=== PATIENT | female | born 1965 | race Caucasian/White ===

== ENCOUNTER → 2023-04-09 08:52 | Outpatient (REF) | payer BC, SELFPAY | LOC: DHCBC MAIN 08:52 | PROVIDERS: ATTENDING PHYSICIAN Internal Medicine; FAMILY PHYSICIAN Family Medicine | DX: R94.31 Abnormal electrocardiogram [ECG] [EKG] (principal); R00.2 Palpitations; R42 Dizziness and giddiness | CPT/HCPCS: 93306 ==

== ENCOUNTER → 2023-07-10 08:15 | Outpatient (REF) | payer BC, SELFPAY | LOC: HWRAD 08:15 | PROVIDERS: ATTENDING PHYSICIAN Obstetrics & Gynecology Gynecologic Oncology; FAMILY PHYSICIAN Family Medicine; REFERRING PHYSICIAN Obstetrics & Gynecology Gynecologic Oncology | DX: C54.1 Malignant neoplasm of endometrium (principal) | CPT/HCPCS: 71260; 74177; Q9967 ==

== ENCOUNTER → 2023-07-15 15:19 | Outpatient (REF) | payer BC, SELFPAY ==
[2023-07-15 15:36] LABS: % Basophils 0.8 % (0-2); % Immature Granulocytes 0.3 % (0-0.5); % Lymphocytes 35.4 % (20.5-51.1); % Monocytes 7.3 % (1.7-9.3); % Neutrophils 55.2 % (42.2-75.2); Absolute Basophils 0.1 10^3/uL (0-0.2); Absolute Eosinophils 0.1 10^3/uL (0-0.7); Absolute Lymphocytes 2.5 10^3/uL (1.2-3.4); Absolute Monocytes 0.5 10^3/uL (0.1-0.6); Absolute Neutrophils 3.9 10^3/uL (1.4-6.5); Hematocrit 36.5 % (37.0-47.0); Hemoglobin 12.5 g/dL (12.0-16.0); Mean Corp Hgb Conc. 34.2 g/dL (33.0-37.0); Mean Corpuscular Volume 87.5 fL (81.0-99.0); Mean Platelet Volume 8.7 fL (7.4-10.4); Nucleated Red Blood Cells % 0 %; Platelet Count 371 10^3/uL (130-400); Red Blood Cell Count 4.17 10^6/uL (4.20-5.40); Red Cell Dist. Width 12.1 % (11.5-14.5); White Blood Cell Count 7.1 10^3/uL (4.8-10.8)
[2023-07-15 16:01] LABS: ALT (SGPT) 15 U/L (0-35); AST (SGOT) 23 U/L (14-36); Albumin 4.3 g/dl (3.5-5.0); Alkaline Phosphatase 81 U/L (38-126); Blood Urea Nitrogen 13 mg/dl (7-17); Calcium 9.6 mg/dl (8.4-10.2); Carbon Dioxide 30 mmol/L (22-30); Chloride 101 mmol/L (98-107); Glucose 115 mg/dl (70-99); Potassium 4.3 mmol/L (3.5-5.1); Sodium 139 mmol/L (135-145); Total Bilirubin 0.9 mg/dl (0.2-1.3); Total Protein 7.1 g/dl (6.3-8.2); eGFR > 60.00
[2023-07-15 19:58] LABS: CA 125 5.7 U/mL (0-35)
== END ==
LOC: REG 15:19
PROVIDERS: ATTENDING PHYSICIAN Obstetrics & Gynecology Gynecologic Oncology; FAMILY PHYSICIAN Family Medicine; REFERRING PHYSICIAN Obstetrics & Gynecology Gynecologic Oncology
DX: C54.9 Malignant neoplasm of corpus uteri, unspecified (principal); C54.1 Malignant neoplasm of endometrium
CPT/HCPCS: 36415; 80053; 85025; 86304

== ENCOUNTER → 2023-07-16 15:50 | Outpatient (REF) | payer BC, SELFPAY | LOC: HWWDC 15:50 | PROVIDERS: ATTENDING PHYSICIAN Obstetrics & Gynecology Gynecologic Oncology; FAMILY PHYSICIAN Family Medicine; REFERRING PHYSICIAN Obstetrics & Gynecology Gynecologic Oncology | DX: Z12.31 Encounter for screening mammogram for malignant neoplasm of breast (principal) | CPT/HCPCS: 77063; 77067 ==

== ENCOUNTER → 2023-11-06 06:22 | Outpatient (REF) | payer BC, SELFPAY ==
[2023-11-06 06:52] LABS: % Basophils 0.6 % (0-2); % Immature Granulocytes 0.3 % (0-0.5); % Lymphocytes 43.4 % (20.5-51.1); % Neutrophils 43.7 % (42.2-75.2); Absolute Eosinophils 0.1 10^3/uL (0-0.7); Absolute Lymphocytes 2.8 10^3/uL (1.2-3.4); Absolute Monocytes 0.7 10^3/uL (0.1-0.6); Absolute Neutrophils 2.8 10^3/uL (1.4-6.5); Hematocrit 40.4 % (37.0-47.0); Hemoglobin 13.4 g/dL (12.0-16.0); Mean Corp Hgb Conc. 33.2 g/dL (33.0-37.0); Mean Corpuscular Hgb 29.8 pg (27.0-31.0); Mean Platelet Volume 9.2 fL (7.4-10.4); Nucleated Red Blood Cells % 0 %; Platelet Count 314 10^3/uL (130-400); Red Blood Cell Count 4.49 10^6/uL (4.20-5.40); Red Cell Dist. Width 12.3 % (11.5-14.5); White Blood Cell Count 6.5 10^3/uL (4.8-10.8)
[2023-11-06 07:28] LABS: ALT (SGPT) 18 U/L (0-35); AST (SGOT) 27 U/L (14-36); Albumin 4.4 g/dl (3.5-5.0); Alkaline Phosphatase 86 U/L (38-126); Blood Urea Nitrogen 14 mg/dl (7-17); Calcium 9.6 mg/dl (8.4-10.2); Carbon Dioxide 27 mmol/L (22-30); Chloride 106 mmol/L (98-107); Glucose 97 mg/dl (70-99); HDL Cholesterol 101 mg/dl; LDL Cholesterol, Calculated 195 mg/dl; Potassium 4.2 mmol/L (3.5-5.1); Sodium 141 mmol/L (135-145); Total Bilirubin 1.1 mg/dl (0.2-1.3); Total Cholesterol 311 mg/dl (50-199); Total Protein 7.1 g/dl (6.3-8.2); Triglyceride 75 mg/dl (10-149); Very Low Density Lipoprotein 15 mg/dl (0-30); eGFR > 60.00
[2023-11-06 07:55] LABS: TSH 5.65 uIU/ml (0.47-4.68)
[2023-11-06 09:57] LABS: Glycohemoglobin (HgbA1c) 5.2 % (4.0-5.6)
== END ==
LOC: REG 06:22
PROVIDERS: ATTENDING PHYSICIAN Family Medicine
DX: Z00.00 Encounter for general adult medical examination without abnormal findings (principal)
CPT/HCPCS: 36415; 80053; 80061; 83036; 84443; 85025

== ENCOUNTER → 2023-12-18 06:44 | Outpatient (REF) | payer BC, SELFPAY | LOC: HWRAD 06:44 | PROVIDERS: ATTENDING PHYSICIAN Dermatology; FAMILY PHYSICIAN Family Medicine; REFERRING PHYSICIAN Obstetrics & Gynecology Gynecologic Oncology | DX: R79.89 Other specified abnormal findings of blood chemistry (principal); D48.5 Neoplasm of uncertain behavior of skin | CPT/HCPCS: 76536; 76882 ==

== ENCOUNTER → 2024-04-02 08:28 | Outpatient (REF) | payer BC, SELFPAY ==
[2024-04-02 13:59] LABS: % Basophils 0.6 % (0-2); % Eosinophils 0.9 % (0-6); % Immature Granulocytes 0.1 % (0-0.5); % Lymphocytes 34.5 % (20.5-51.1); % Neutrophils 53.9 % (42.2-75.2); Absolute Eosinophils 0.1 10^3/uL (0-0.7); Absolute Lymphocytes 2.3 10^3/uL (1.2-3.4); Absolute Monocytes 0.7 10^3/uL (0.1-0.6); Absolute Neutrophils 3.6 10^3/uL (1.4-6.5); Hematocrit 43.2 % (37.0-47.0); Hemoglobin 14.6 g/dL (12.0-16.0); Mean Corp Hgb Conc. 33.8 g/dL (33.0-37.0); Mean Corpuscular Hgb 30.2 pg (27.0-31.0); Mean Corpuscular Volume 89.4 fL (81.0-99.0); Mean Platelet Volume 9.5 fL (7.4-10.4); Nucleated Red Blood Cells % 0 %; Platelet Count 350 10^3/uL (130-400); Red Blood Cell Count 4.83 10^6/uL (4.20-5.40); Red Cell Dist. Width 12.2 % (11.5-14.5); White Blood Cell Count 6.7 10^3/uL (4.8-10.8)
[2024-04-02 14:31] LABS: ALT (SGPT) 19 U/L (0-35); AST (SGOT) 30 U/L (14-36); Albumin 4.6 g/dl (3.5-5.0); Alkaline Phosphatase 86 U/L (38-126); Blood Urea Nitrogen 15 mg/dl (7-17); Calcium 9.4 mg/dl (8.4-10.2); Carbon Dioxide 30 mmol/L (22-30); Chloride 100 mmol/L (98-107); Glucose 88 mg/dl (70-99); Potassium 4.7 mmol/L (3.5-5.1); Sodium 140 mmol/L (135-145); Total Bilirubin 1.1 mg/dl (0.2-1.3); Total Protein 7.4 g/dl (6.3-8.2); eGFR > 60.00
[2024-04-03 11:24] LABS: CA 125 6.5 U/mL (0-35)
== END ==
LOC: REG 08:28
PROVIDERS: ATTENDING PHYSICIAN Physician Assistant Surgical; FAMILY PHYSICIAN Family Medicine
DX: C54.1 Malignant neoplasm of endometrium (principal); Z12.31 Encounter for screening mammogram for malignant neoplasm of breast
CPT/HCPCS: 36415; 80053; 85025; 86304

== ENCOUNTER → 2024-04-23 07:31 | Outpatient (REF) | payer BC, SELFPAY | LOC: RAD 07:31 | PROVIDERS: ATTENDING PHYSICIAN Physician Assistant Surgical; FAMILY PHYSICIAN Family Medicine | DX: C54.1 Malignant neoplasm of endometrium (principal); Z12.31 Encounter for screening mammogram for malignant neoplasm of breast | CPT/HCPCS: 71260; 74177; Q9967 ==

== ENCOUNTER → 2024-06-03 16:24 | Outpatient (REF) | payer BC, SELFPAY | LOC: CLAB 16:24 | PROVIDERS: Pathology Anatomic Pathology & Clinical Pathology; ATTENDING PHYSICIAN Dermatology | DX: D48.5 Neoplasm of uncertain behavior of skin (principal) | CPT/HCPCS: 88305 ==

== ENCOUNTER → 2024-07-16 15:02 | Outpatient (REF) | payer BC, SELFPAY | LOC: WDC 15:02 | PROVIDERS: ATTENDING PHYSICIAN Obstetrics & Gynecology Gynecologic Oncology; FAMILY PHYSICIAN Family Medicine | DX: Z12.31 Encounter for screening mammogram for malignant neoplasm of breast (principal) | CPT/HCPCS: 77063; 77067 ==

== ENCOUNTER → 2024-11-05 08:44 | Outpatient (REF) | payer BC, SELFPAY ==
[2024-11-05 09:46] LABS: % Eosinophils 1.6 % (0-6); % Immature Granulocytes 0.6 % (0-0.5); % Lymphocytes 36.9 % (20.5-51.1); % Monocytes 9.5 % (1.7-9.3); % Neutrophils 50.4 % (42.2-75.2); Absolute Basophils 0.1 10^3/uL (0-0.2); Absolute Eosinophils 0.1 10^3/uL (0-0.7); Absolute Lymphocytes 1.9 10^3/uL (1.2-3.4); Absolute Monocytes 0.5 10^3/uL (0.1-0.6); Absolute Neutrophils 2.5 10^3/uL (1.4-6.5); Hematocrit 42.5 % (37.0-47.0); Hemoglobin 14.1 g/dL (12.0-16.0); Mean Corp Hgb Conc. 33.2 g/dL (33.0-37.0); Mean Corpuscular Hgb 29.9 pg (27.0-31.0); Mean Platelet Volume 9.5 fL (7.4-10.4); Nucleated Red Blood Cells % 0 %; Platelet Count 328 10^3/uL (130-400); Red Blood Cell Count 4.72 10^6/uL (4.20-5.40); Red Cell Dist. Width 12.3 % (11.5-14.5)
[2024-11-05 12:52] LABS: ALT (SGPT) 18 U/L (0-35); AST (SGOT) 26 U/L (14-36); Albumin 4.6 g/dl (3.5-5.0); Alkaline Phosphatase 77 U/L (38-126); Blood Urea Nitrogen 16 mg/dl (7-17); Calcium 9.6 mg/dl (8.4-10.2); Carbon Dioxide 27 mmol/L (22-30); Chloride 110 mmol/L (98-107); Glucose 94 mg/dl (70-99); LDH 182 U/L (120-246); Potassium 4.7 mmol/L (3.5-5.1); Sodium 143 mmol/L (135-145); Total Bilirubin 1.2 mg/dl (0.2-1.3); Total Protein 7.5 g/dl (6.3-8.2); eGFR > 60.00
[2024-11-05 13:00] LABS: TSH Reflex To Free T4 2.06 uIU/ml (0.47-4.68)
[2024-11-05 18:43] LABS: CA 125 5.5 U/mL (0-35)
== END ==
LOC: REG 08:44
PROVIDERS: ATTENDING PHYSICIAN Obstetrics & Gynecology Gynecologic Oncology; FAMILY PHYSICIAN Family Medicine; REFERRING PHYSICIAN Dermatology
DX: C54.1 Malignant neoplasm of endometrium (principal); Z12.31 Encounter for screening mammogram for malignant neoplasm of breast; Z85.820 Personal history of malignant melanoma of skin
CPT/HCPCS: 36415; 80053; 83615; 84443; 85025; 86304